=== PATIENT | female | born 2000 | race African-American/Black ===

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

== ENCOUNTER 2023-09-16 14:33 | Emergency (ER) | payer SELFPAY ==
[~2023-09-16] VITALS: Ht 170.2 cm; Wt 66.4 kg
[~2023-09-16 14:33] MED LIST changes: +CEFTIN 250250 MG/TAB PO; +ZOFRAN ODT4 MG PO
[2023-09-16 14:56] VITALS: TEMP 98.9
[2023-09-16 16:14] LABS: STREP A NEGATIVE
[2023-09-16] MEDS ORDERED: Ketorolac 30 MG/ML VIAL IM ONE (16:45)
[2023-09-16 17:38] VITALS: BP 127/85; PULSE 72
== END 2023-09-16 17:36 | disposition home or self-care (01) ==
LOC: COL.ER 14:33
PROVIDERS: Physician Assistant
DX: J02.9 Acute pharyngitis, unspecified (principal)
CPT/HCPCS: J1885

== ENCOUNTER 2023-09-17 22:22 | Emergency (ER) | payer OTHER ==
[~2023-09-17] VITALS: Ht 170.2 cm; Wt 66.4 kg
[2023-09-17 22:29] VITALS: BP 115/72; PULSE 68; TEMP 98.2
[2023-09-17] MEDS ORDERED: droPERidol 2.5 MG/ML 2 ML VIAL IV ONE (23:00)
[2023-09-17] MEDS ORDERED: NS 1,000 ML IV ONE (23:00)
[2023-09-17 23:15] LABS: BASO % 0.2 % (0.0-2.0); EOS % 0.2 % (0.0-4.0); GRAN % 80.2 % (42.2-75.2); LYMPH # 1.1 K/mm3 (1.2-3.4); LYMPH % 11.1 % (20.0-51.0); MEAN CELL VOLUME 87 fl (80.0-100.0); MEAN CORPUSCULAR HEMOGLOBIN 29 pg (27-31); MEAN CORPUSCULAR HGB CONC 33 g/dl (33.0-37.0); MEAN PLATELET VOLUME 9.1 fl (7.4-10.4); MONO # 0.8 K/mm3 (0.1-0.6); MONO % 7.8 % (1.7-9.3); PLATELET COUNT 234 K/mm3 (130-400); RED BLOOD COUNT 3.83 M/mm3 (4.10-5.30); REDCELL DISTRIBUTION WIDTH-CV 14.6 % (11.5-14.5)
[2023-09-17 23:16] LABS: HEMATOCRIT 33.3 % (37.0-47.0)
[2023-09-17 23:34] LABS: CALCIUM 9.1 mg/dL (8.4-10.2); CREATININE, serum 0.74 mg/dL (0.57-1.11); MONOSCREEN NEGATIVE; POTASSIUM 3.8 mEq/L (3.5-4.5); TOTAL PROTEIN 7.2 g/dl (6.2-8.1)
[2023-09-18] LABS: BILIRUBIN,TOTAL 0.4 mg/dL (0.2-1.2)
[2023-09-18] MEDS ORDERED: ZOFRAN ODT4 MG PO (00:02)
[2023-09-18] MEDS ORDERED: ZITHROMAX Z PA250 MG PO (00:02)
[2023-09-18] MEDS ORDERED: Azithromycin 250 MG TAB PO ONE (00:15)
== END 2023-09-18 01:54 | disposition home or self-care (01) ==
LOC: COL.ER 22:22
PROVIDERS: Personal Emergency Response Attendant
DX: J20.9 Acute bronchitis, unspecified (principal); R11.10 Vomiting, unspecified
CPT/HCPCS: J1790; J7030

== ENCOUNTER → 2024-01-22 | Outpatient (CLI) | payer SELFPAY ==
--- NOTE | 2024-01-19 08:56 | NUR ---
LMOM WITH INSTRUCTIONS AND CALL BACK NUMBER
[~2024-01-22] VITALS: Ht 170.2 cm; Wt 71.5 kg
[~2024-01-22] MED LIST changes: +ZITHROMAX Z PA250 MG PO
[2024-01-22 12:40] VITALS: BP 115/71; PULSE 65; TEMP 98.2
--- NOTE | 2024-01-22 15:28 | NUR ---
WHEN PATIENT WAS SEEN BY DR. AZAR, DR. AZAR DECIDED NOT TO PROCEED WITH BIOPSY. DR. AZAR CALLED DR. SCHROEDER TO GIVE RECS ON FURTHER CARE. NO STICKS OR INCISIONS MADE. PATIENT ESCORTED BACK TO RAD HOLDING AREA WHERE SHE PUT HER CLOTHES BACK ON AND WAS ESOCRTED OUT TO HER MOTHER WITH ALL OF HER THINGS.
== END ==
LOC: COL.RAD 11:59
DX: R22.1 Localized swelling, mass and lump, neck (principal)

== ENCOUNTER → 2024-03-05 | Outpatient (CLI) | payer SELFPAY ==
[~2024-03-05] MED LIST changes: +Iohexol 300 - 100 ML VIAL IV ONE; +NS 100 ML IV SCH
== END ==
LOC: COL.RAD 13:56
DX: D44.6 Neoplasm of uncertain behavior of carotid body (principal); R59.9 Enlarged lymph nodes, unspecified
CPT/HCPCS: Q9967